=== PATIENT | female | born 1990 | race Caucasian/White ===

== ENCOUNTER 2017-02-19 14:30 | Outpatient (CLI) | payer MEDICAID ==
--- NOTE | 2017-02-20 05:39 | MRI Report ---
EXAM: MRI BRAIN WITHOUT CONTRAST EXAM DATE: 02/19/2017 03:39 PM. CLINICAL HISTORY: Hand muscle weakness. Fatigue and memory loss. There is clinical concern for demyel inating disease. COMPARISON: None. TECHNIQUE: Multiplanar, multisequence T1-weighted and fluid-sensitive MR sequences of the brain were performed. Sequences optimized for routine evaluation. Other: None. IV Contrast: None. FINDINGS: Brain Volume: Normal for age. Parenchyma/Dura: No mass, acute infarct or hemorrhage. No white matter lesions identified. Ventricles/Cisterns: No hydrocephalus. No abnormal extra-axial fluid collection or hemorrhage. Orbits: Symmetric and unremarkable. Sella Turcica: The pituitary gland, cavernous sinuses, suprasellar cistern and optic chiasm are unrem arkable. IAC: Symmetric and unremarkable. Vasculature: Normal signal flow void is seen in the major arterial structures at the skull base. Sinuses: No acute appearing sinus disease. Bones: No focal pathologic appearing marrow signal changes. Other: Mildly degraded by motion. IMPRESSION: 1.Mildly degraded by motion. No acute or focal intracranial abnormality. No white matter lesions iden tified. [facility] Referring Provider Line: [phone] SITE ID: [id number]
== END 2017-02-19 14:31 | disposition home or self-care (01) ==
LOC: DI 14:30
PROVIDERS: ATTEND Family Medicine
DX: M62.81 Muscle weakness (generalized) (principal)
CPT/HCPCS: 70551

== ENCOUNTER 2017-09-12 09:49 | Emergency (ER) | payer MEDICAID ==
[2017-09-12] MEDS ORDERED: SODIUM CHLORIDE 0.9% 1,000 ML IV ONE (10:06)
[2017-09-12 10:20] LABS: BASOPHILS # (AUTO) 0.1 10^3/uL (0.0-0.1); BASOPHILS % (AUTO) 1.3 %; EOSINOPHILS # (AUTO) 0.2 10^3/uL (0.0-0.7); EOSINOPHILS % (AUTO) 3.4 %; HGB - HEMOGLOBIN 13.5 g/dL (12.0-16.0); LYMPHOCYTES # (AUTO) 1.3 10^3/uL (1.5-3.5); LYMPHOCYTES % (AUTO) 27.4 %; MEAN CORPUSCULAR HEMOGLOBIN 31.7 pg (27.0-31.0); MEAN CORPUSCULAR HGB CONC 33.6 g/dL (32.0-36.0); MEAN CORPUSCULAR VOLUME 94.4 fL (81.0-99.0); MEAN PLATELET VOLUME 8.3 fL (7.9-10.8); MONOCYTES # (AUTO) 0.4 10^3/uL (0.0-1.0); MONOCYTES % (AUTO) 8.4 %; NEUTROPHILS # (AUTO) 2.9 10^3/uL (1.5-6.6); NEUTROPHILS % (AUTO) 59.5 %; PLT - PLATELET COUNT 301 10^3/uL (130-450); RED BLOOD COUNT 4.27 10^6/uL (4.20-5.40); RED CELL DISTRIBUTION WIDTH 12.3 % (12.0-15.0); WHITE BLOOD COUNT 4.9 x10^3/uL (4.8-10.8)
[2017-09-12 10:29] LABS: CALCIUM 8.9 mg/dL (8.5-10.3); CREATININE 0.6 mg/dL (0.4-1.0)
[2017-09-12 11:07] LABS: HCG,QUALITATIVE BLOOD NEGATIVE
--- NOTE | 2017-09-12 11:15 | ED Physician Documentation ---
History of Present Illness - Stated complaint Stated Complaint: FAST HR - Chief complaint Chief Complaint: Cardiac - Additonal information Additional information: hx from pt 27 y/o f denies preg approx 3 days of soa, chest heaviness, palp feeling faint increased her TCA a week ago fhx DVT no leg swelling no travel no smoking Review of Systems Constitutional: denies: Fever, Chills Cardiac: reports: Chest pain / pressure, Palpitations Respiratory: reports: Dyspnea. denies: Cough GI: denies: Abdominal Pain, Nausea, Vomiting : denies: Now EGA Musculoskeletal: denies: Extremity swelling Neurologic: reports: Generalized weakness, Near syncope Endocrine: denies: Easy bruising / bleeding Immunocompromised: denies: Immunocompromised PD PAST MEDICAL HISTORY - Past Medical History Other Past Medical History: raynauds and fibromylagia - Present Medications Home Medications: Ambulatory Orders Medication Instructions Recorded Confirmed Clomipramine HCl 50 mg PO QPM 09/12/17 09/12/17 Escitalopram [Lexapro] 20 mg PO DAILY 09/12/17 09/12/17 - Allergies Allergies/Adverse Reactions: Allergies Allergy/AdvReac Type Severity Reaction Status Date / Time Opioids - Morphine Analogues Allergy Hives Verified 09/12/17 09:54 PD ED PE NORMAL - Vitals Vital signs reviewed: Yes - General General: Alert and oriented X 3 - HEENT HEENT: PERRL - Neck Neck: Supple, no meningeal sign - Cardiac Cardiac: RRR - Respiratory Respiratory: No respiratory distress, Clear bilaterally - Abdomen Abdomen: Soft, Non tender - Derm Derm: Warm and dry - Extremities Extremities: No deformity, No edema, No calf tenderness / cord - Neuro Neuro: Alert and oriented X 3 Results - Vitals Vitals: Vital Signs - 24 hr 09/12/17 09/12/17 09/12/17 09:51 10:31 12:17 Temperature 36.5 C Heart Rate 99 82 88 Respiratory 18 14 16 Rate Blood Pressure 120/71 115/74 119/76 O2 Saturation 99 97 97 Oxygen O2 Source Room air - EKG (time done) 1003 Rate: Rate (enter#) (92) Rhythm: NSR Orcas: Normal Intervals: Normal ME QRS: Normal Ischemia: Normal ST segments - Tele (time rhythm occurred) 11 AM Telemetry / rhythm strip: NSR - Labs Labs: Laboratory Tests 09/12/17 09/12/1709/12/18 10:15 10:15 10:15 WBC 4.9 RBC 4.27 Hgb 13.5 Hct 40.3 MCV 94.4 MCH 31.7 H MCHC 33.6 RDW 12.3 Plt Count 301 MPV 8.3 Neut # (Auto) 2.9 Lymph # (Auto) 1.3 L [place] # (Auto) 0.4 Eos # (Auto) 0.2 Baso # (Auto) 0.1 Absolute Nucleated RBC 0.00 Nucleated RBC % 0.0 Sodium 139 Potassium 4.6 Chloride 105 Carbon Dioxide 27 Anion Gap 7.0 BUN 12 Creatinine 0.6 Estimated GFR (MDRD) 118 Glucose 97 Calcium 8.9 TSH Serum HCG, Qual NEGATIVE 09/12/17 10:15 WBC RBC Hgb Hct MCV MCH MCHC RDW Plt Count MPV Neut # (Auto) Lymph # (Auto) [place] # (Auto) Eos # (Auto) Baso # (Auto) Absolute Nucleated RBC Nucleated RBC % Sodium Potassium Chloride Carbon Dioxide Anion Gap BUN Creatinine Estimated GFR (MDRD) Glucose Calcium TSH 1.09 Serum HCG, Qual - Rads (name of study) CTPA Radiology: See rad report (no PE) PD MEDICAL DECISION MAKING - ED course ED course: fhx DVT PE and palp with CP and SOA - thankfully CTPA neg clomipramine can cause cp and palp per UTD so perhaps increased dose caused sx will reassure and dc with rec to return to old dose and discuss dc all together with PMD - Sepsis Event Vital Signs: Vital Signs - 24 hr 09/12/17 09/12/17 09/12/17 09:51 10:31 12:17 Temperature 36.5 C Heart Rate 99 82 88 Respiratory 18 14 16 Rate Blood Pressure 120/71 115/74 119/76 O2 Saturation 99 97 97 Oxygen O2 Source Room air Departure - Departure Disposition: 01 Home, Self Care Clinical Impression: Palpitations Dyspnea Qualifiers: Dyspnea type: unspecified Qualified Code(s): R06.00 - Dyspnea, unspecified Condition: Good Instructions: ED Palpitations, ED Dyspnea Shortness of Breath Follow-Up: Mary Funes DO [Primary Care Provider] - Comments: Thankfully all your tests came back fine Your EKG did not show a heart attack. The CT did not sow a blood clot in your lungs. You are not anemic Your electrolytes are fine Clomipramine can cause these symptoms - so i suggest you decrease your dose back to what it used to be and talk with your PMD about stopping the medication all together Return if worse
[2017-09-12] MEDS ORDERED: IOPAMIDOL-300 100 ML VIAL ONE (12:52)
[2017-09-12] MEDS ORDERED: IOPAMIDOL-300 100 ML VIAL IVP ONE (13:03)
--- NOTE | 2017-09-12 13:16 | CT Report ---
Procedure Date: 09/12/2017 Accession Number: [id number] / [id number] Procedure: CT - Chest Angio (PE) CPT Code: FULL RESULT: EXAM: CT ANGIOGRAM CHEST EXAM DATE: 09/12/2017 01:02 PM. CLINICAL HISTORY: Chest pain with shortness of air. COMPARISON: None. TECHNIQUE: Routine helical imaging was performed through the chest in the pulmonary arterial phase. IV Contrast: ISOVUE 300 80mL. Reconstructions: Coronal 3-D MIP reconstructions.Sagittal and coronal. In accordance with CT protocol optimization, one or more of the following dose reduction techniques were utilized for this exam: automated exposure control, adjustment of mA and/or KV based on patient size, or use of iterative reconstructive technique. FINDINGS: Pulmonary Arteries: Diagnostic quality: Adequate through the segmental arteries. No evidence for acute or chronic pulmonary emboli. The main pulmonary artery is normal in size. Lungs/Pleura: There is no consolidative process. There is a 3 mm left upper lobe peripheral nodule in series 5 image 50. There is a 2 mm fissure nodule image 75. Nodules have a benign appearance for age. Mediastinum: Normal. No cardiac enlargement or adenopathy. Thoracic Aorta: Unremarkable. Upper Abdomen: Unremarkable. Other: None. IMPRESSION: 1. Negative for pulmonary embolism. 2. No other significant acute abnormality within the chest to explain clinical symptoms. 3. Incidental benign-appearing 2 mm and 3 mm lung nodules. No follow-up recommended. [facility]
[2017-09-12 14:16] VITALS: BP 113/80
== END 2017-09-12 14:21 | disposition home or self-care (01) ==
LOC: ED 09:49
DX: R00.2 Palpitations (principal); R06.00 Dyspnea, unspecified; I73.00 Raynaud's syndrome without gangrene
CPT/HCPCS: 36415; 71275; 80048; 84443; 84703; 85025; 93005; 96360; 99283; 99284; Q9967

== ENCOUNTER 2018-04-26 14:30 | Outpatient (CLI) | payer MEDICAID ==
[2018-04-26 18:57] LABS: BASOPHILS # (AUTO) 0.1 10^3/uL (0.0-0.1); BASOPHILS % (AUTO) 1.1 %; EOSINOPHILS # (AUTO) 0.2 10^3/uL (0.0-0.7); EOSINOPHILS % (AUTO) 2.3 %; HGB - HEMOGLOBIN 13.5 g/dL (12.0-16.0); LYMPHOCYTES # (AUTO) 2.1 10^3/uL (1.5-3.5); LYMPHOCYTES % (AUTO) 31.1 %; MEAN CORPUSCULAR HEMOGLOBIN 30.8 pg (27.0-31.0); MEAN CORPUSCULAR HGB CONC 32.5 g/dL (32.0-36.0); MEAN CORPUSCULAR VOLUME 94.9 fL (81.0-99.0); MEAN PLATELET VOLUME 8.8 fL (7.9-10.8); MONOCYTES # (AUTO) 0.5 10^3/uL (0.0-1.0); MONOCYTES % (AUTO) 6.8 %; NEUTROPHILS % (AUTO) 58.7 %; PLT - PLATELET COUNT 271 10^3/uL (130-450); RED BLOOD COUNT 4.37 10^6/uL (4.20-5.40); RED CELL DISTRIBUTION WIDTH 12.8 % (12.0-15.0); WHITE BLOOD COUNT 6.9 x10^3/uL (4.8-10.8)
[2018-04-26 19:25] LABS: ALBUMIN/GLOBULIN RATIO 1.3 (1.0-2.2); BILIRUBIN,TOTAL 0.7 mg/dL (0.2-1.0); CALCIUM 8.8 mg/dL (8.5-10.3); CREATININE 0.6 mg/dL (0.4-1.0); TOTAL PROTEIN 7.1 g/dL (6.7-8.2)
== END 2018-04-26 14:31 | disposition home or self-care (01) ==
LOC: LAB.WCP 14:30
PROVIDERS: ATTEND Family Medicine
DX: R10.9 Unspecified abdominal pain (principal)
CPT/HCPCS: 36415; 80053; 83690; 84702; 85025

== ENCOUNTER 2018-05-04 07:27 | Outpatient (CLI) | payer MEDICAID ==
[2018-05-04] MEDS ORDERED: IOVERSOL 320 50 ML VIAL ONE (07:40)
[2018-05-04] MEDS ORDERED: IOVERSOL 320 100 ML VIAL IVP ONE ×2 (07:41→10:04)
[2018-05-04] MEDS ORDERED: IOVERSOL 320 50 ML VIAL PO ONE (10:04)
--- NOTE | 2018-05-04 14:41 | CT Report ---
Reason: ABDOMINAL PAIN Procedure Date: 05/04/2018 Accession Number: [id number] / [id number] Procedure: CT - Abdomen/Pelvis W CPT Code: FULL RESULT: EXAM: CT ABDOMEN AND PELVIS EXAM DATE: 05/04/2018 08:59 AM. CLINICAL HISTORY: ABDOMINAL PAIN. COMPARISONS: None. TECHNIQUE: Routine helical CT imaging was performed through the abdomen and pelvis. IV contrast: HIVN413 90mL. Enteric contrast: Yes. Reconstructions: Coronal and sagittal. In accordance with CT protocol optimization, one or more of the following dose reduction techniques were utilized for this exam: automated exposure control, adjustment of mA and/or KV based on patient size, or use of iterative reconstructive technique. FINDINGS: Lung Bases: Unremarkable. Liver: Normal. No masses. Gallbladder/Bile Ducts: Unremarkable. Spleen: Normal. Pancreas: Normal. Adrenal Glands: Normal. Kidneys: Normal. No masses or hydronephrosis. Peritoneal Cavity/Bowel: Normal. No free fluid, free air or adenopathy. No masses or acute inflammatory process. The appendix is well visualized and normal. Pelvic Organs: Normal. The bladder and visualized pelvic organs are within normal limits. Vasculature: No aneurysms or other significant abnormality. Bones: No significant abnormality. Other: None. IMPRESSION: The etiology of the patient's abdominal pain is not delineated. [facility]
== END 2018-05-04 07:28 | disposition home or self-care (01) ==
LOC: DI 07:27
PROVIDERS: ATTEND Family Medicine
DX: R10.9 Unspecified abdominal pain (principal)
CPT/HCPCS: 74177; Q9967

== ENCOUNTER 2023-09-30 12:50 | Emergency (ER) | payer MEDICAID ==
[2023-09-30 13:08] VITALS: BP 119/80; O2SAT 98
--- NOTE | 2023-09-30 14:43 | ED Physician Documentation ---
PD HPI LOWER EXT INJURY - Stated complaint Stated Complaint: LT ANKLE INJ - Chief complaint Chief Complaint: Trauma Ext - History obtained from History obtained from: Patient - Additional information Additional information: She fell down several stairs and injured her left ankle. She is not able to walk and bear weight. No other injuries. This happened today. PD PAST MEDICAL HISTORY - Past Medical History Past Medical History: Yes Cardiovascular: Other Other Past Medical History: heart palpitations - Past Surgical History Past Surgical History: Yes - Present Medications Home Medications: Ambulatory Orders Medication Instructions Recorded Confirmed Amitriptyline [Elavil] 25 mg PO QPM 09/30/23 09/30/23 Gabapentin 400 mg PO QPM 09/30/23 09/30/23 Metoprolol Succinate [Toprol Xl] 25 mg PO DAILY 09/30/23 09/30/23 - Allergies Allergies/Adverse Reactions: Allergies Allergy/AdvReac Type Severity Reaction Status Date / Time Opioids - Morphine Analogues Allergy Hives Verified 09/30/23 13:07 - Social History Does the pt smoke?: No Smoking Status: Never smoker Does the pt drink ETOH?: Yes Does the pt have substance abuse?: No - Immunizations Immunizations are current?: Yes - POLST Patient has POLST: No PD ED PE NORMAL - Vitals Vital signs reviewed: Yes - General General: Alert and oriented X 3, No acute distress - Extremities Extremities: Other (Exquisitely tender over the lateral malleolus of the left ankle with swelling. No foot or proximal fibular tenderness. No deformity.) - Neuro Neuro: Alert and oriented X 3, Normal speech Results - Vitals Vitals: Vital Signs - 24 hr 09/30/23 13:03 Temperature 36 C L Heart Rate 84 Respiratory 16 Rate Blood Pressure 119/80 O2 Saturation 98 Oxygen O2 Source Room air - Rads (name of study) L ankle xr Relevant Findings:: Final report received (nondisplaced fx though lat malleolus), EMP independent interpretation of test Procedures - Splint (location) - Minor Left leg Splint applied by: Physician Type of splint: Fiberglass, Short arm, Posterior Other: Patient tolerated well, No complications, Crutches provided PD Medical Decision Making - ED course ED course: She has isolated lat mAll frx L ankle. Splint and crutches. Advised ortho f/u Departure - Departure Disposition: 01 Home, Self Care Clinical Impression: Ankle fracture, left Qualifiers: Encounter type: initial encounter Fracture type: closed Qualified Code(s): S82.892A - Other fracture of left lower leg, initial encounter for closed fracture Condition: Good Record reviewed to determine appropriate education?: Yes Instructions: ED Fx Ankle Lateral Malleolus Follow-Up: [facility] [Provider Group] Comments: You have a hairline fracture through your lateral malleolus, part of your distal fibular bone. Keep the splint on and dry. You can take Tylenol and/or ibuprofen as needed for pain. Follow-up with our orthopedic office in about a week for recheck, call Tuesday for an appointment. Forms: PCP List Discharge Date/Time: 09/30/23 15:12
--- NOTE | 2023-09-30 14:58 | XRAY Report ---
PROCEDURE: Ankle 3+V LT INDICATIONS: Trauma TECHNIQUE: 3 views of the ankle were acquired. COMPARISON: None. FINDINGS: Bones: No oblique lucency in the distal fibula on the oblique view of the ankle is consistent with e ither a nondisplaced fracture or a nutrient canal. No other fractures or dislocations. Ankle mortise is normally aligned. No suspicious bony lesions. Soft tissues: Lateral soft tissue swelling. Positive tibiotalar joint effusion. Achilles tendon cari ears normal. IMPRESSION: Nondisplaced distal fibular fracture versus nutrient canal. Recommend correlation for presence or abs ence of point tenderness Tibiotalar joint effusion, lateral ankle sprain Reviewed by: Marcelo Wren MD on 09/30/2023 2:57 PM PDT Approved by: Marcelo Wren MD on 09/30/2023 2:57 PM PDT Station ID: [id number]
== END 2023-09-30 15:12 | disposition home or self-care (01) ==
LOC: ED 12:50
DX: S82.892A Other fracture of left lower leg, initial encounter for closed fracture (principal); W10.9XXA Fall (on) (from) unspecified stairs and steps, initial encounter
CPT/HCPCS: 29125; 29515; 99283

== ENCOUNTER 2023-10-03 09:04 | Emergency (ER) | payer MEDICAID ==
[2023-10-03 09:28] VITALS: BP 111/79; O2SAT 100
--- NOTE | 2023-10-03 09:52 | ED Physician Documentation ---
History of Present Illness - Stated complaint Stated Complaint: LT ANKLE PX,NUMBNESS - Chief complaint Chief Complaint: Ext Problem - History obtained from History obtained from: Patient - History of Present Illness Timing: How many days ago (3) Pain level max: 5 Pain level now: 5 - Additonal information Additional information: Patient is a 33-year-old female presents to the emergency department with a known left distal fibula fracture. She states that the splint is causing her pain in her heel and Achilles. Nothing makes it better or worse. No new falls or trauma. Review of Systems Constitutional: denies: Fever PD PAST MEDICAL HISTORY - Past Medical History Cardiovascular: Other - Past Surgical History Past Surgical History: Yes - Present Medications Home Medications: Ambulatory Orders Medication Instructions Recorded Confirmed Amitriptyline [Elavil] 25 mg PO QPM 09/30/23 09/30/23 Gabapentin 400 mg PO QPM 09/30/23 09/30/23 Metoprolol Succinate [Toprol Xl] 25 mg PO DAILY 09/30/23 09/30/23 - Allergies Allergies/Adverse Reactions: Allergies Allergy/AdvReac Type Severity Reaction Status Date / Time Opioids - Morphine Analogues Allergy Hives Verified 10/03/23 09:15 - Social History Does the pt smoke?: No Smoking Status: Never smoker Does the pt drink ETOH?: Yes Does the pt have substance abuse?: No - Immunizations Immunizations are current?: Yes - POLST Patient has POLST: No PD ED PE NORMAL - Vitals Vital signs reviewed: Yes - General General: Alert and oriented X 3, No acute distress - Derm Derm: Warm and dry - Neuro Neuro: Alert and oriented X 3, Other (L foot - splint in place. NVI. brisk cap refill.) Results - Vitals Vitals: Vital Signs - 24 hr 10/03/23 09:15 Temperature 36.2 C L Heart Rate 87 Respiratory 16 Rate Blood Pressure 111/79 O2 Saturation 100 Oxygen O2 Source Room air Procedures - Splint (location) - Minor L ankle Splint applied by: Physician Type of splint: Fiberglass, Short leg, Posterior, Other Other: Patient tolerated well, No complications, Neurovascular intact, Crutches provided PD Medical Decision Making - ED course Complexity details: reviewed old records, considered differential, d/w patient, d/w family ED course: Patient appeared to be having pain from her splint. The splint was removed. Extra padding was applied over all bony prominences and the heel. Her pain resolved with a reapplication of a new posterior splint with Stirrup. Neurovascularly intact. We will have her follow up with Orthopedics for further care. Patient counseled regarding signs and symptoms for which I believe an urgent re- evaluation would be necessary. Patient with good understanding of and agreement to plan and is comfortable going home at this time. This document was made in part using voice recognition software. While efforts are made to proofread this document, sound alike and grammatical errors may occur. Departure - Departure Disposition: Home, Self Care Clinical Impression: Fracture of distal fibula Qualifiers: Encounter type: initial encounter Fracture type: closed Fracture morphology: unspecified fracture morphology Laterality: left Qualified Code(s): S82.832A - Other fracture of upper and lower end of left fibula, initial encounter for closed fracture Condition: Good Instructions: ED Cast Care Fiberglass, ED Fx Lower Ext Follow-Up: [facility] [Provider Group] Comments: Please follow-up with orthopedics in 1 to 2 weeks. Please keep the splint on until that time. Please return if you worsen. Continue to use crutches at home. Do not bear weight on the left leg. Forms: PCP List Discharge Date/Time: 10/03/23 10:09
== END 2023-10-03 10:09 | disposition home or self-care (01) ==
LOC: ED 09:04
DX: S82.832A Other fracture of upper and lower end of left fibula, initial encounter for closed fracture (principal)
CPT/HCPCS: 29515

== ENCOUNTER 2023-10-09 09:57 | Outpatient (CLI) | payer MEDICAID | END 2023-10-09 09:58 | disposition home or self-care (01) | LOC: DI 09:57 | PROVIDERS: ATTEND Orthopaedic Surgery | DX: Z53.9 Procedure and treatment not carried out, unspecified reason (principal) ==

== ENCOUNTER 2023-10-09 10:07 | Outpatient (CLI) | payer MEDICAID ==
--- NOTE | 2023-10-09 18:00 | XRAY Report ---
PROCEDURE: Ankle 3+V LT INDICATIONS: Left ankle pain TECHNIQUE: 3 views of the ankle were acquired. COMPARISON: X-ray ankle 09/30/2023 FINDINGS: Bones: Overlying cast material obscures fine detail evaluation. Stable alignment with less prominent visualization of distal fibular lucency. Soft tissues: No tibiotalar joint effusion. Achilles tendon appears normal. IMPRESSION: Stable alignment with less prominent appearance of distal fibular fracture lucency. This may be secon xenia to interval healing versus overlying cast material. Reviewed by: Ymael Gomez MD on 10/09/2023 5:59 PM PDT Approved by: Yamel Gomez MD on 10/09/2023 5:59 PM PDT Station ID: [id number]
== END 2023-10-09 10:08 | disposition home or self-care (01) ==
LOC: DI 10:07
PROVIDERS: ATTEND Orthopaedic Surgery
DX: S82.832D Other fracture of upper and lower end of left fibula, subsequent encounter for closed fracture with routine healing (principal)

== ENCOUNTER 2023-11-07 13:00 | Outpatient (CLI) | payer MEDICAID ==
--- NOTE | 2023-11-07 20:32 | XRAY Report ---
PROCEDURE: Ankle 3+V LT INDICATIONS: NONDISPLACED FX OF LATERAL MALLEOLUS L FIBULA TECHNIQUE: 2 views of the ankle were acquired. COMPARISON: 09/30/2023, 10/09/2023. FINDINGS: Bones: There is interval further healing at lateral malleolus fracture site. No new fracture or disl ocation. Ankle mortise is normally aligned. No suspicious bony lesions. Soft tissues: No tibiotalar joint effusion. Achilles tendon appears normal. IMPRESSION: Interval healing at lateral malleolus fracture site. No new fracture or dislocation. Stable anatomic ankle alignment. Reviewed by: Sarthak Patton MD on 11/07/2023 8:31 PM PDT Approved by: Sarthak Patton MD on 11/07/2023 8:31 PM PDT Station ID: [id number]
== END 2023-11-07 13:01 | disposition home or self-care (01) ==
LOC: DI 13:00
PROVIDERS: ATTEND Orthopaedic Surgery
DX: S82.65XD Nondisplaced fracture of lateral malleolus of left fibula, subsequent encounter for closed fracture with routine healing (principal)